=== PATIENT | female | born 1955 | race Native Hawaiian/Other Pacific Islander ===

== ENCOUNTER 2018-11-09 08:25 | Emergency (ER) | payer OTHER ==
[~2018-11-09] VITALS: Ht 165.1 cm; Wt 68.0 kg
[2018-11-09 09:22] VITALS: BP 166/86
[2018-11-09] MEDS ORDERED: HYDROcodone-ACET 10/325MG TAB PO ONE (10:00)
== END 2018-11-09 11:36 | disposition home or self-care (01) ==
LOC: ER 08:25
DX: S32.2XXA Fracture of coccyx, initial encounter for closed fracture (principal); V43.62XA Car passenger injured in collision with other type car in traffic accident, initial encounter; Y93.89 Activity, other specified; Y99.8 Other external cause status; Y92.410 Unspecified street and highway as the place of occurrence of the external cause
CPT/HCPCS: 72131; 72192